=== PATIENT | male | born 1955 | race Caucasian/White ===

== ENCOUNTER → 2020-03-08 | Outpatient (CLI) | payer BC ==
[2020-03-08 06:52] LABS: HEMATOCRIT 38.1 % (42.0-52.0); HEMOGLOBIN 12.6 g/dl (13.5-17.5); MEAN CORPUSCULAR HEMOGLOBIN 30.8 pg (27.0-33.0); MEAN CORPUSCULAR HGB CONC 33.1 g/dl (32.0-36.5); MEAN CORPUSCULAR VOLUME 93.2 fl (80.0-96.0); PLATELET COUNT, AUTOMATED 271 10^3/uL (150-450); RED BLOOD COUNT 4.09 10^6/uL (4.30-6.10); WHITE BLOOD COUNT 4.8 10^3/uL (4.0-10.0)
[2020-03-08 07:03] LABS: INR 2.23; PROTHROMBIN TIME 25.2 SECONDS (12.5-14.3)
[2020-03-08 07:25] LABS: ALT/SGPT 31 U/L (12-78); BILIRUBIN,TOTAL 0.7 MG/DL (0.2-1.0); BLOOD UREA NITROGEN 16 MG/DL (7-18); CARBON DIOXIDE LEVEL 30 MEQ/L (21-32); CHLORIDE LEVEL 108 MEQ/L (98-107); CHOLESTEROL LEVEL 213 MG/DL (<200); CHOLESTEROL RISK RATIO 2.766 (<5); CREATININE FOR GFR 0.89 MG/DL (0.70-1.30); GLOMERULAR FILTRATION RATE > 60.0 (>49); GLUCOSE, FASTING 99 MG/DL (70-100); HDL CHOLESTEROL 77 MG/DL (>40); LDL CHOLESTEROL 118 MG/DL (<100); NON-HDL-C 136 MG/DL; POTASSIUM SERUM 4.4 MEQ/L (3.5-5.1); PROSTATIC SPECIFIC AG MONITOR 0.71 NG/ML (< 4.00); SODIUM LEVEL 142 MEQ/L (136-145); TOTAL PROTEIN 7.2 GM/DL (6.4-8.2); TRIGLYCERIDES LEVEL 89 MG/DL (<150)
[2020-03-08 11:41] LABS: HEMOGLOBIN A1c 5.2 %
--- NOTE | 2020-03-09 19:26 | ECGEPIP ---
[facility] Test Date: 2020-03-08 Pat Name: ANTONETTE HUNT Department: Room: - Gender: Male [employer]: BAL : 1955 Requested By: Whit Carrillo Order Number: [id number] Reading MD: Priyanka Rice Measurements Intervals [place] Rate: 92 P: -75 NV: 177 QRS: 31 QRSD: 98 T: 43 QT: 349 QTc: 432 Interpretive Statements SINUS RHYTHM NO PRIOR Electronically Signed on 03-09-2020 19:26:04 EDT by Priyanka Rice
--- NOTE | 2020-03-13 16:16 | REP ---
CHEST X-RAY: 2-VIEWS HISTORY: Hypertension and fatigue. COMPARISON: No comparison chest. FINDINGS: Median sternotomy wires are seen. The lungs are well-inflated and clear. The pleural angles are sharp. Heart size is normal. Pulmonary vasculature is not increased. No significant bony abnormality. IMPRESSION: No active disease. MTDD
== END ==
LOC: M LAB 06:06
PROVIDERS: ATTEND Family Medicine
DX: E03.9 Hypothyroidism, unspecified (principal); R53.83 Other fatigue; I10 Essential (primary) hypertension

== ENCOUNTER → 2021-04-05 | Outpatient (CLI) | payer BC ==
[2021-04-05 10:46] LABS: INR 2.49; PROTHROMBIN TIME 27.3 SECONDS (12.7-14.5)
[2021-04-05 11:13] LABS: ALBUMIN 4.1 GM/DL (3.2-5.2); ALT/SGPT 36 U/L (12-78); BILIRUBIN,TOTAL 0.5 MG/DL (0.2-1.0); BLOOD UREA NITROGEN 12 MG/DL (7-18); CARBON DIOXIDE LEVEL 30 MEQ/L (21-32); CHLORIDE LEVEL 107 MEQ/L (98-107); CHOLESTEROL LEVEL 226 MG/DL (<200); CHOLESTEROL RISK RATIO 3.704 (<5); CREATININE FOR GFR 0.85 MG/DL (0.70-1.30); GLOMERULAR FILTRATION RATE > 60.0 (>49); GLUCOSE, FASTING 105 MG/DL (70-100); HDL CHOLESTEROL 61 MG/DL (>40); LDL CHOLESTEROL 142 MG/DL (<100); NON-HDL-C 165 MG/DL; POTASSIUM SERUM 4.2 MEQ/L (3.5-5.1); SODIUM LEVEL 141 MEQ/L (136-145); TOTAL PROTEIN 7.1 GM/DL (6.4-8.2); TRIGLYCERIDES LEVEL 114 MG/DL (<150)
== END ==
LOC: M PLALAB 07:46
PROVIDERS: ATTEND Family Medicine
DX: E78.2 Mixed hyperlipidemia (principal); Z79.01 Long term (current) use of anticoagulants

== ENCOUNTER → 2021-04-05 | Outpatient (REF) | payer BC | LOC: M LAB REF 16:06 | PROVIDERS: ATTEND Physician Assistant | DX: C44.529 Squamous cell carcinoma of skin of other part of trunk (principal) ==

== ENCOUNTER → 2021-07-10 | Outpatient (REF) | payer BC | LOC: M LAB REF 17:36 | PROVIDERS: ATTEND Physician Assistant | DX: L90.5 Scar conditions and fibrosis of skin (principal) ==

== ENCOUNTER → 2021-08-08 | Outpatient (CLI) | payer BC ==
[2021-08-08 11:27] LABS: BLOOD UREA NITROGEN 24 MG/DL (7-18); CALCIUM LEVEL 9.3 MG/DL (8.8-10.2); CARBON DIOXIDE LEVEL 30 MEQ/L (21-32); CHLORIDE LEVEL 106 MEQ/L (98-107); CREATININE FOR GFR 0.95 MG/DL (0.70-1.30); GLOMERULAR FILTRATION RATE > 60.0 (>49); GLUCOSE, FASTING 99 MG/DL (70-100); POTASSIUM SERUM 4.4 MEQ/L (3.5-5.1); SODIUM LEVEL 139 MEQ/L (136-145)
== END ==
LOC: M PLALAB 07:13
PROVIDERS: ATTEND Family Medicine
DX: I10 Essential (primary) hypertension (principal)

== ENCOUNTER 2021-12-25 18:48 | Emergency (ER) | payer BC ==
[~2021-12-25] VITALS: Ht 182.9 cm; Wt 81.9 kg
[2021-12-25] MEDS ORDERED: HALO0.052 (19:02)
[2021-12-25] MEDS ORDERED: WARF-60 (19:02)
[2021-12-25] MEDS ORDERED: LISI10TA22 (19:02)
[2021-12-25] MEDS ORDERED: ATOR40TA75 (19:02)
[2021-12-25] MEDS ORDERED: WARF4TAB52 (19:02)
[2021-12-25] MEDS ORDERED: METO1TAB7 (19:02)
[2021-12-25 19:33] LABS: BASO # 0.1 10^3/uL (0.0-0.2); BASO % 0.7 % (0.0-1.0); EOS # 0.4 10^3/uL (0.0-0.5); EOS % 4.7 % (0.0-3.0); HEMATOCRIT 38.1 % (42.0-52.0); HEMOGLOBIN 12.9 g/dl (13.5-17.5); LYMPH # 1.1 10^3/uL (1.5-5.0); LYMPH % 14.1 % (24.0-44.0); MEAN CORPUSCULAR HEMOGLOBIN 30.5 pg (27.0-33.0); MEAN CORPUSCULAR HGB CONC 33.9 g/dl (32.0-36.5); MEAN CORPUSCULAR VOLUME 90.1 fl (80.0-96.0); MONO # 0.6 10^3/uL (0.0-0.8); MONO % 7.6 % (2.0-8.0); NEUTROPHILS # 5.6 10^3/uL (1.5-8.5); NEUTROPHILS % 72.6 % (36.0-66.0); PLATELET COUNT, AUTOMATED 243 10^3/uL (150-450); RED BLOOD COUNT 4.23 10^6/uL (4.30-6.10); WHITE BLOOD COUNT 7.7 10^3/uL (4.0-10.0)
[2021-12-25 19:51] LABS: INR 2.1
[2021-12-25 20:01] LABS: ALBUMIN 4.1 GM/DL (3.2-5.2); BILIRUBIN,DIRECT 0.1 MG/DL (0.0-0.2); BILIRUBIN,TOTAL 0.5 MG/DL (0.2-1.0); CK-MB VALUE MASS 1.6 NG/ML (<3.6); MB/CK RELATIVE INDEX 1.5 (< OR =4)
[2021-12-25 20:18] VITALS: BP 140/68
[2021-12-25] MEDS ORDERED: OMEP40CA4 PO (20:34)
[2021-12-25] MEDS ORDERED: OMEPRAZOLE 20MG CAP PO ONE (20:35)
== END 2021-12-25 20:58 | disposition home or self-care (01) ==
LOC: M ED 18:48
DX: R10.13 Epigastric pain (principal); E78.00 Pure hypercholesterolemia, unspecified; L30.9 Dermatitis, unspecified; Z79.899 Other long term (current) drug therapy; Z79.01 Long term (current) use of anticoagulants

== ENCOUNTER → 2022-02-06 | Outpatient (CLI) | payer BC, SELFPAY ==
[~2022-02-06] MED LIST: ATOR40TA75; HALO0.052; LISI10TA22; METO1TAB7; OMEP40CA4 PO; WARF-60; WARF4TAB52
[2022-02-06 11:33] LABS: INR 3.79; PROTHROMBIN TIME 37.6 SECONDS (12.7-14.5)
== END ==
LOC: M PLALAB 07:44
PROVIDERS: ATTEND Physician Assistant
DX: Z95.2 Presence of prosthetic heart valve (principal)

== ENCOUNTER → 2022-02-27 | Outpatient (CLI) | payer SELFPAY ==
[2022-02-27 10:34] LABS: INR 2.56; PROTHROMBIN TIME 27.9 SECONDS (12.7-14.5)
== END ==
LOC: M PLALAB 07:54
PROVIDERS: ATTEND Physician Assistant
DX: Z79.01 Long term (current) use of anticoagulants (principal); Z95.2 Presence of prosthetic heart valve

== ENCOUNTER → 2022-03-29 | Outpatient (CLI) | payer BC ==
[2022-03-29 16:17] LABS: INR 2.73; PROTHROMBIN TIME 29.4 SECONDS (12.5-14.5)
== END ==
LOC: M PLALAB 14:32
PROVIDERS: ATTEND Physician Assistant
DX: Z95.2 Presence of prosthetic heart valve (principal)

== ENCOUNTER → 2022-05-07 | Outpatient (CLI) | payer BC ==
[2022-05-07 14:05] LABS: INR 2.82; PROTHROMBIN TIME 30.1 SECONDS (12.5-14.5)
== END ==
LOC: M PLALAB 10:08
PROVIDERS: ATTEND Physician Assistant
DX: Z95.2 Presence of prosthetic heart valve (principal)

== ENCOUNTER → 2022-06-11 | Outpatient (CLI) | payer BC ==
[2022-06-11 15:35] LABS: INR 3.32; PROTHROMBIN TIME 34.2 SECONDS (12.5-14.5)
== END ==
LOC: M PLALAB 12:43
PROVIDERS: ATTEND Physician Assistant
DX: Z95.2 Presence of prosthetic heart valve (principal); Z79.01 Long term (current) use of anticoagulants

== ENCOUNTER → 2022-06-18 | Outpatient (REF) | payer BC | LOC: M SFHCPLAZ 08:52 | PROVIDERS: ATTEND Physician Assistant | DX: Z53.9 Procedure and treatment not carried out, unspecified reason (principal) ==

== ENCOUNTER → 2022-06-18 | Outpatient (CLI) | payer BC ==
[2022-06-18 10:59] LABS: INR 1.68; PROTHROMBIN TIME 20.1 SECONDS (12.5-14.5)
[2022-06-18 11:17] LABS: CHOLESTEROL RISK RATIO 2.82 (<5); HDL CHOLESTEROL 59.1 MG/DL (>40); LDL CHOLESTEROL 94.3 MG/DL (<100)
== END ==
LOC: M PLALAB 09:14
PROVIDERS: ATTEND Physician Assistant
DX: E78.2 Mixed hyperlipidemia (principal)

== ENCOUNTER → 2022-07-11 | Outpatient (CLI) | payer BC ==
[2022-07-11 10:53] LABS: INR 1.9; PROTHROMBIN TIME 22.1 SECONDS (12.5-14.5)
== END ==
LOC: M PLALAB 07:25
PROVIDERS: ATTEND Physician Assistant
DX: Z79.01 Long term (current) use of anticoagulants (principal)

== ENCOUNTER → 2022-08-02 | Outpatient (REF) | payer BC ==
[2022-08-02 10:37] LABS: INR 2.6; PROTHROMBIN TIME 28.3 SECONDS (12.5-14.5)
== END ==
LOC: M PLALAB 09:58
PROVIDERS: ATTEND Physician Assistant
DX: Z79.01 Long term (current) use of anticoagulants (principal)

== ENCOUNTER → 2022-08-07 | Outpatient (CLI) | payer MEDICARE ==
[2022-08-07 14:08] LABS: INR 2.66; PROTHROMBIN TIME 28.8 SECONDS (12.5-14.5)
== END ==
LOC: M PLALAB 10:21
PROVIDERS: ATTEND Physician Assistant
DX: Z95.2 Presence of prosthetic heart valve (principal)

== ENCOUNTER → 2022-09-05 | Outpatient (CLI) | payer MEDICARE ==
[2022-09-05 14:05] LABS: INR 3.42
== END ==
LOC: M PLALAB 10:26
PROVIDERS: ATTEND Physician Assistant
DX: Z95.2 Presence of prosthetic heart valve (principal)

== ENCOUNTER → 2022-09-18 | Outpatient (CLI) | payer MEDICARE ==
[2022-09-18 13:44] LABS: INR 2.82; PROTHROMBIN TIME 30.1 SECONDS (12.5-14.5)
== END ==
LOC: M PLALAB 09:13
PROVIDERS: ATTEND Physician Assistant
DX: Z95.2 Presence of prosthetic heart valve (principal); Z79.01 Long term (current) use of anticoagulants

== ENCOUNTER → 2022-10-07 | Outpatient (CLI) | payer MEDICARE ==
[2022-10-07 11:37] LABS: INR 1.95; PROTHROMBIN TIME 22.6 SECONDS (12.5-14.5)
== END ==
LOC: M PLALAB 07:33
PROVIDERS: ATTEND Physician Assistant
DX: Z95.2 Presence of prosthetic heart valve (principal)

== ENCOUNTER → 2022-11-01 | Outpatient (CLI) | payer MEDICARE ==
[2022-11-01 13:55] LABS: INR 1.58; PROTHROMBIN TIME 19.2 SECONDS (12.5-14.5)
== END ==
LOC: M PLALAB 09:50
PROVIDERS: ATTEND Physician Assistant
DX: Z95.2 Presence of prosthetic heart valve (principal)

== ENCOUNTER → 2022-11-15 | Outpatient (CLI) | payer MEDICARE ==
[2022-11-15 10:47] LABS: INR 2.03; PROTHROMBIN TIME 23.3 SECONDS (12.5-14.5)
== END ==
LOC: M PLALAB 07:05
PROVIDERS: ATTEND Physician Assistant
DX: Z95.2 Presence of prosthetic heart valve (principal)

== ENCOUNTER → 2022-12-12 | Outpatient (CLI) | payer MEDICARE ==
[2022-12-12 14:19] LABS: INR 3.16; PROTHROMBIN TIME 32.9 SECONDS (12.5-14.5)
== END ==
LOC: M PLALAB 10:48
PROVIDERS: ATTEND Physician Assistant
DX: Z95.2 Presence of prosthetic heart valve (principal)

== ENCOUNTER → 2023-01-02 | Outpatient (CLI) | payer MEDICARE ==
[2023-01-02 13:35] LABS: INR 2.52; PROTHROMBIN TIME 27.6 SECONDS (12.5-14.5)
== END ==
LOC: M PLALAB 11:46
PROVIDERS: ATTEND Student in an Organized Health Care Education/Training Program
DX: Z79.01 Long term (current) use of anticoagulants (principal)

== ENCOUNTER → 2023-01-31 | Outpatient (CLI) | payer MEDICARE ==
[2023-01-31 15:12] LABS: INR 2.79; PROTHROMBIN TIME 28.8 SECONDS (12.5-14.5)
== END ==
LOC: M PLALAB 08:45
PROVIDERS: ATTEND Physician Assistant
DX: Z95.2 Presence of prosthetic heart valve (principal)

== ENCOUNTER → 2023-03-06 | Outpatient (CLI) | payer MEDICARE ==
[2023-03-06 13:49] LABS: INR 2.16; PROTHROMBIN TIME 23.6 SECONDS (12.5-14.5)
== END ==
LOC: M PLALAB 09:53
PROVIDERS: ATTEND Student in an Organized Health Care Education/Training Program
DX: Z79.01 Long term (current) use of anticoagulants (principal)

== ENCOUNTER → 2023-03-11 | Outpatient (CLI) | payer MEDICARE ==
[2023-03-11 10:49] LABS: BASO # 0.1 10^3/uL (0.0-0.2); BASO % 0.7 % (0.0-1.0); EOS # 0.4 10^3/uL (0.0-0.5); EOS % 6.4 % (0.0-3.0); HEMATOCRIT 43.3 % (42.0-52.0); HEMOGLOBIN 14.4 g/dl (13.5-17.5); LYMPH # 0.7 10^3/uL (1.5-5.0); LYMPH % 10.1 % (24.0-44.0); MEAN CORPUSCULAR HEMOGLOBIN 30.6 pg (27.0-33.0); MEAN CORPUSCULAR HGB CONC 33.3 g/dl (32.0-36.5); MEAN CORPUSCULAR VOLUME 91.9 fl (80.0-96.0); MONO # 0.7 10^3/uL (0.0-0.8); NEUTROPHILS # 4.8 10^3/uL (1.5-8.5); NEUTROPHILS % 71.4 % (36.0-66.0); PLATELET COUNT, AUTOMATED 282 10^3/uL (150-450); RED BLOOD COUNT 4.71 10^6/uL (4.30-6.10); WHITE BLOOD COUNT 6.7 10^3/uL (4.0-10.0)
[2023-03-11 10:59] LABS: INR 2.63; PROTHROMBIN TIME 27.5 SECONDS (12.5-14.5)
[2023-03-11 11:22] LABS: CREATININE, URINE 182.5 MG/DL; MAU/CREAT RATIO 3.2 MCG/MG (0.0-30.0)
[2023-03-11 11:27] LABS: ALKALINE PHOSPHATASE 66 U/L (46-116); ALT/SGPT 45 U/L (7.0-40); AST/SGOT 24 U/L (<34); BILIRUBIN,TOTAL 0.7 MG/DL (0.3-1.2); BLOOD UREA NITROGEN 13 MG/DL (9-23); CALCIUM LEVEL 9.3 MG/DL (8.3-10.6); CARBON DIOXIDE LEVEL 29 MMOL/L (20-31); CHLORIDE LEVEL 105 MMOL/L (98-107); CHOLESTEROL LEVEL 166 MG/DL (<200); CHOLESTEROL RISK RATIO 3.22 (<5); CREATININE FOR GFR 0.81 MG/DL (0.70-1.30); GLOMERULAR FILTRATION RATE > 60.0 (>49); GLUCOSE, FASTING 92 MG/DL (74-106); HDL CHOLESTEROL 51.5 MG/DL (>40); LDL CHOLESTEROL 93.1 MG/DL (<100); NON-HDL-C 114.5 MG/DL; POTASSIUM SERUM 4.7 MMOL/L (3.5-5.1); SODIUM LEVEL 140 MMOL/L (136-145); TOTAL PROTEIN 6.9 G/DL (5.7-8.2); TRIGLYCERIDES LEVEL 107 MG/DL (<150)
[2023-03-11 11:56] LABS: HIV 1&2 SCREEN NEGATIVE (NEGATIVE)
[2023-03-11 12:03] LABS: HEPATITIS C VIRUS ABY INDEX 0.04 INDEX (<0.8)
[2023-03-11 16:12] LABS: ALBUMIN 4.2 G/DL (3.2-5.2)
== END ==
LOC: M PLALAB 08:07
PROVIDERS: ATTEND Student in an Organized Health Care Education/Training Program
DX: Z76.89 Persons encountering health services in other specified circumstances (principal); Z79.01 Long term (current) use of anticoagulants; Z79.899 Other long term (current) drug therapy

== ENCOUNTER → 2023-04-09 | Outpatient (CLI) | payer MEDICARE ==
[2023-04-09 12:34] LABS: INR 3.91; PROTHROMBIN TIME 36.8 SECONDS (12.5-14.5)
== END ==
LOC: M PLALAB 08:32
PROVIDERS: ATTEND Student in an Organized Health Care Education/Training Program
DX: Z79.01 Long term (current) use of anticoagulants (principal)

== ENCOUNTER → 2023-04-16 | Outpatient (CLI) | payer MEDICARE | LOC: M CARPUL 09:50 | PROVIDERS: ATTEND Student in an Organized Health Care Education/Training Program | DX: Z95.2 Presence of prosthetic heart valve (principal) ==

== ENCOUNTER → 2023-04-21 | Outpatient (CLI) | payer MEDICARE ==
[2023-04-21 10:39] LABS: INR 3.47; PROTHROMBIN TIME 33.6 SECONDS (12.5-14.5)
== END ==
LOC: M PLALAB 08:36
PROVIDERS: ATTEND Student in an Organized Health Care Education/Training Program
DX: Z79.01 Long term (current) use of anticoagulants (principal)

== ENCOUNTER → 2023-05-14 | Outpatient (CLI) | payer MEDICARE ==
[2023-05-14 11:09] LABS: INR 3.1; PROTHROMBIN TIME 30.8 SECONDS (12.5-14.5)
== END ==
LOC: M PLALAB 08:42
PROVIDERS: ATTEND Student in an Organized Health Care Education/Training Program
DX: Z79.01 Long term (current) use of anticoagulants (principal)

== ENCOUNTER → 2023-06-20 | Outpatient (CLI) | payer MEDICARE ==
[2023-06-20 13:18] LABS: INR 3.39
== END ==
LOC: M PLALAB 10:44
PROVIDERS: ATTEND Student in an Organized Health Care Education/Training Program
DX: Z79.01 Long term (current) use of anticoagulants (principal)

== ENCOUNTER 2023-07-01 07:07 | Emergency (ER) | payer MEDICARE ==
[~2023-07-01] VITALS: Ht 182.9 cm; Wt 86.2 kg
[2023-07-01 09:59] VITALS: TEMP 98.2
[2023-07-01 12:29] VITALS: BP 137/73; O2SAT 99
== END 2023-07-01 12:31 | disposition home or self-care (01) ==
LOC: M ED 07:07
DX: S40.922A Unspecified superficial injury of left upper arm, initial encounter (principal); W01.0XXA Fall on same level from slipping, tripping and stumbling without subsequent striking against object, initial encounter; I10 Essential (primary) hypertension; Y92.009 Unspecified place in unspecified non-institutional (private) residence as the place of occurrence of the external cause; Y93.89 Activity, other specified; Y99.9 Unspecified external cause status; Z79.01 Long term (current) use of anticoagulants; Z79.811 Long term (current) use of aromatase inhibitors; Z79.02 Long term (current) use of antithrombotics/antiplatelets; Z79.899 Other long term (current) drug therapy

== ENCOUNTER → 2023-07-18 | Outpatient (CLI) | payer MEDICARE ==
[~2023-07-18] MED LIST changes: -ATOR40TA75; +ATOR40TA75 PO; +D 101000 PO; -LISI10TA22; +LISI10TA22 PO; -METO1TAB7; +METO1TAB7 PO; -WARF-60; +WARF-60 PO; -WARF4TAB52; +WARF4TAB52 PO
[2023-07-18 16:11] LABS: INR 3.71; PROTHROMBIN TIME 35.4 SECONDS (12.5-14.5)
== END ==
LOC: M PLALAB 13:49
PROVIDERS: ATTEND Student in an Organized Health Care Education/Training Program
DX: Z79.01 Long term (current) use of anticoagulants (principal)

== ENCOUNTER → 2023-08-21 | Outpatient (CLI) | payer MEDICARE ==
[2023-08-21 10:31] LABS: INR 3.36; PROTHROMBIN TIME 32.8 SECONDS (12.5-14.5)
== END ==
LOC: M PLALAB 08:16
PROVIDERS: ATTEND Family Medicine
DX: Z79.01 Long term (current) use of anticoagulants (principal)

== ENCOUNTER → 2023-10-08 | Outpatient (REF) | payer MEDICARE | LOC: M SFHCPLAZ 10:49 | PROVIDERS: ATTEND Student in an Organized Health Care Education/Training Program | DX: Z95.2 Presence of prosthetic heart valve (principal) ==

== ENCOUNTER → 2023-10-09 | Outpatient (CLI) | payer MEDICARE ==
[2023-10-09 10:32] LABS: INR 2.99
== END ==
LOC: M PLALAB 08:06
PROVIDERS: ATTEND Student in an Organized Health Care Education/Training Program
DX: Z95.2 Presence of prosthetic heart valve (principal); Z79.01 Long term (current) use of anticoagulants

== ENCOUNTER → 2023-12-09 | Outpatient (CLI) | payer MEDICARE ==
[2023-12-09 12:48] LABS: INR 3.61; PROTHROMBIN TIME 34.7 SECONDS (12.5-14.5)
== END ==
LOC: M PLALAB 10:02
PROVIDERS: ATTEND Student in an Organized Health Care Education/Training Program
DX: Z95.2 Presence of prosthetic heart valve (principal)

== ENCOUNTER → 2023-12-17 | Outpatient (REF) | payer MEDICARE | LOC: M SFHCPLAZ 12:52 | PROVIDERS: ATTEND Student in an Organized Health Care Education/Training Program | DX: Z79.01 Long term (current) use of anticoagulants (principal) ==

== ENCOUNTER → 2024-02-10 | Outpatient (CLI) | payer MEDICARE ==
[2024-02-10 13:18] LABS: HEMATOCRIT 41.9 % (42.0-52.0); HEMOGLOBIN 14.1 g/dl (13.5-17.5); RED BLOOD COUNT 4.65 10^6/uL (4.30-6.10); WHITE BLOOD COUNT 5.8 10^3/uL (4.0-10.0)
[2024-02-10 13:19] LABS: BASO % 0.7 % (0.0-1.0); EOS # 0.4 10^3/uL (0.0-0.5); EOS % 7.1 % (0.0-3.0); LYMPH % 17.1 % (24.0-44.0); MEAN CORPUSCULAR HEMOGLOBIN 30.3 pg (27.0-33.0); MEAN CORPUSCULAR HGB CONC 33.7 g/dl (32.0-36.5); MEAN CORPUSCULAR VOLUME 90.1 fl (80.0-96.0); MONO # 0.6 10^3/uL (0.0-0.8); MONO % 10.3 % (2.0-8.0); NEUTROPHILS # 3.7 10^3/uL (1.5-8.5); NEUTROPHILS % 64.5 % (36.0-66.0); PLATELET COUNT, AUTOMATED 247 10^3/uL (150-450)
[2024-02-10 13:29] LABS: INR 2.59; PROTHROMBIN TIME 26.8 SECONDS (12.5-14.5)
[2024-02-10 13:54] LABS: CREATININE, URINE 32.8 MG/DL; MALB URINE SIEMENS < 3.0 MG/L; MAU/CREAT RATIO 9.1 MCG/MG (0.0-30.0)
[2024-02-10 13:59] LABS: ALBUMIN 4.2 G/DL (3.2-5.2); ALKALINE PHOSPHATASE 57 U/L (46-116); ALT/SGPT 38 U/L (7.0-40); AST/SGOT 24 U/L (<34); BILIRUBIN,TOTAL 0.9 MG/DL (0.3-1.2); BLOOD UREA NITROGEN 15 MG/DL (9-23); CALCIUM LEVEL 9.9 MG/DL (8.3-10.6); CARBON DIOXIDE LEVEL 29 MMOL/L (20-31); CHLORIDE LEVEL 107 MMOL/L (98-107); CHOLESTEROL LEVEL 203 MG/DL (<200); CHOLESTEROL RISK RATIO 3.05 (<5); CREATININE FOR GFR 0.83 MG/DL (0.70-1.30); GLOMERULAR FILTRATION RATE > 60.0 (>49); GLUCOSE, FASTING 93 MG/DL (74-106); HDL CHOLESTEROL 66.5 MG/DL (>40); LDL CHOLESTEROL 114.7 MG/DL (<100); NON-HDL-C 136.5 MG/DL; POTASSIUM SERUM 4.9 MMOL/L (3.5-5.1); SODIUM LEVEL 141 MMOL/L (136-145); TRIGLYCERIDES LEVEL 109 MG/DL (<150)
== END ==
LOC: M PLALAB 10:47
PROVIDERS: ATTEND Student in an Organized Health Care Education/Training Program
DX: E78.2 Mixed hyperlipidemia (principal); I10 Essential (primary) hypertension; Z79.01 Long term (current) use of anticoagulants

== ENCOUNTER → 2024-02-11 | Outpatient (REF) | payer MEDICARE | LOC: M SFHCPLAZ 09:28 | PROVIDERS: ATTEND Student in an Organized Health Care Education/Training Program | DX: Z79.01 Long term (current) use of anticoagulants (principal); E78.2 Mixed hyperlipidemia; I10 Essential (primary) hypertension ==

== ENCOUNTER 2024-02-25 10:23 | Day surgery (SDC) | payer MEDICARE ==
[~2024-02-25] VITALS: Ht 180.3 cm; Wt 83.3 kg
[~2024-02-25 10:23] MED LIST changes: +LEVOTAB10 PO; +LOVE1INJ SC; +THERTAB52 PO; +WARF4TAB51 PO
[2024-02-25] MEDS: NS 1,000 ML IV ONE (11:04)
[2024-02-25] MEDS ORDERED: propofoL 200 MG/20 ML VIAL As Ordered ONE (11:40)
[2024-02-25] MEDS ORDERED: LIDOCAINE 2% 100MG/5ML SDV (FOR ANES.) As Ordered ONE (11:40)
[2024-02-25 12:43] VITALS: BP 121/69; O2SAT 99
== END 2024-02-25 12:43 | disposition home or self-care (01) ==
LOC: M OPP 10:23
PROVIDERS: ATTEND Surgery
DX: R19.5 Other fecal abnormalities (principal); D12.5 Benign neoplasm of sigmoid colon; K64.1 Second degree hemorrhoids; I10 Essential (primary) hypertension; E78.00 Pure hypercholesterolemia, unspecified; F17.290 Nicotine dependence, other tobacco product, uncomplicated; Z85.828 Personal history of other malignant neoplasm of skin; Z79.01 Long term (current) use of anticoagulants; Z79.899 Other long term (current) drug therapy; Z95.2 Presence of prosthetic heart valve

== ENCOUNTER → 2024-03-03 | Outpatient (CLI) | payer MEDICARE ==
[2024-03-03 08:28] LABS: INR 1.38; PROTHROMBIN TIME 16.5 SECONDS (12.5-14.5)
== END ==
LOC: M LAB 07:34
PROVIDERS: ATTEND Family Medicine
DX: Z79.01 Long term (current) use of anticoagulants (principal)

== ENCOUNTER → 2024-03-25 | Outpatient (CLI) | payer MEDICARE ==
[2024-03-25 10:09] LABS: INR 2.02; PROTHROMBIN TIME 22.2 SECONDS (12.5-14.5)
== END ==
LOC: M PLALAB 08:50
PROVIDERS: ATTEND Student in an Organized Health Care Education/Training Program
DX: R79.1 Abnormal coagulation profile (principal); Z79.01 Long term (current) use of anticoagulants

== ENCOUNTER 2024-05-20 16:38 | Emergency (ER) | payer MEDICARE ==
[~2024-05-20] VITALS: Ht 182.9 cm; Wt 81.8 kg
[~2024-05-20 16:38] MED LIST changes: -HALO0.052; +HALO0.056
[2024-05-20] MEDS: MORPHINE 2 MG/ML 1ML VIAL IV ONE (17:30)
[2024-05-20] MEDS: LIDOCAINE 5% (LIDODERM) PATCH TD ONE (17:31)
[2024-05-20 17:35] LABS: BASO % 0.6 % (0.0-1.0); EOS # 0.4 10^3/uL (0.0-0.5); EOS % 6.1 % (0.0-3.0); HEMATOCRIT 39.2 % (42.0-52.0); LYMPH # 1.2 10^3/uL (1.5-5.0); LYMPH % 17.3 % (24.0-44.0); MEAN CORPUSCULAR HGB CONC 33.2 g/dl (32.0-36.5); MEAN CORPUSCULAR VOLUME 90.3 fl (80.0-96.0); MONO # 0.7 10^3/uL (0.0-0.8); MONO % 10.4 % (2.0-8.0); NEUTROPHILS # 4.4 10^3/uL (1.5-8.5); NEUTROPHILS % 65.3 % (36.0-66.0); PLATELET COUNT, AUTOMATED 266 10^3/uL (150-450); RED BLOOD COUNT 4.34 10^6/uL (4.30-6.10); WHITE BLOOD COUNT 6.8 10^3/uL (4.0-10.0)
[2024-05-20] MEDS ORDERED: ISOVUE-370 76% 100ML VIAL As Ordered ONE (17:43)
[2024-05-20 17:48] LABS: INR 1.67; PROTHROMBIN TIME 19.9 SECONDS (12.5-14.5)
[2024-05-20] MEDS: PERCOCET 5MG/325MG TAB PO ONE (18:41)
[2024-05-20] MEDS ORDERED: PERC5TAB12 PO (19:03)
[2024-05-20 19:15] VITALS: BP 118/67; O2SAT 95
[2024-05-20 19:25] VITALS: TEMP 97.2
== END 2024-05-20 19:28 | disposition home or self-care (01) ==
LOC: M ED 16:38
DX: S22.42XA Multiple fractures of ribs, left side, initial encounter for closed fracture (principal); M54.50 Low back pain, unspecified; W10.8XXA Fall (on) (from) other stairs and steps, initial encounter; I10 Essential (primary) hypertension; E78.5 Hyperlipidemia, unspecified; Z79.02 Long term (current) use of antithrombotics/antiplatelets; Z79.811 Long term (current) use of aromatase inhibitors; Z79.01 Long term (current) use of anticoagulants; Z79.899 Other long term (current) drug therapy; Y92.009 Unspecified place in unspecified non-institutional (private) residence as the place of occurrence of the external cause; Y93.89 Activity, other specified; Y99.9 Unspecified external cause status
CPT/HCPCS: 70450; 71260; 72125; 80047; 85025; 85610; 94010; 96374; 99284; Q9967

== ENCOUNTER → 2024-06-16 | Outpatient (CLI) | payer MEDICARE ==
[~2024-06-16] MED LIST changes: +PERC5TAB12 PO
[2024-06-16 14:55] LABS: INR 3.51
== END ==
LOC: M LAB 14:08
PROVIDERS: ATTEND Student in an Organized Health Care Education/Training Program
DX: Z79.01 Long term (current) use of anticoagulants (principal)

== ENCOUNTER → 2024-07-06 | Outpatient (CLI) | payer MEDICARE ==
[2024-07-06 12:31] LABS: BASO # 0.1 10^3/uL (0.0-0.2); BASO % 1.1 % (0.0-1.0); EOS # 0.5 10^3/uL (0.0-0.5); EOS % 8.5 % (0.0-3.0); HEMATOCRIT 40.5 % (42.0-52.0); HEMOGLOBIN 13.7 g/dl (13.5-17.5); LYMPH % 18.1 % (24.0-44.0); MEAN CORPUSCULAR HEMOGLOBIN 30.4 pg (27.0-33.0); MEAN CORPUSCULAR HGB CONC 33.8 g/dl (32.0-36.5); MONO # 0.6 10^3/uL (0.0-0.8); MONO % 10.3 % (2.0-8.0); NEUTROPHILS # 3.5 10^3/uL (1.5-8.5); NEUTROPHILS % 61.8 % (36.0-66.0); PLATELET COUNT, AUTOMATED 306 10^3/uL (150-450); WHITE BLOOD COUNT 5.6 10^3/uL (4.0-10.0)
[2024-07-06 12:37] LABS: PROTHROMBIN TIME 22.8 SECONDS (12.5-14.5)
[2024-07-06 12:41] LABS: PSA SCREENING 0.67 NG/ML (< 4.00)
[2024-07-06 12:42] LABS: ALBUMIN 4.3 G/DL (3.2-5.2); ALKALINE PHOSPHATASE 63 U/L (40-129); ALT/SGPT 39 U/L (7.0-40); AST/SGOT 26 U/L (<34); BILIRUBIN,TOTAL 0.8 MG/DL (0.3-1.2); BLOOD UREA NITROGEN 20 MG/DL (9-23); CALCIUM LEVEL 9.7 MG/DL (8.3-10.6); CARBON DIOXIDE LEVEL 30 MMOL/L (20-31); CHLORIDE LEVEL 105 MMOL/L (98-107); CHOLESTEROL LEVEL 199 MG/DL (<200); CHOLESTEROL RISK RATIO 3.36 (<5); CREATININE FOR GFR 0.78 MG/DL (0.70-1.30); GLOMERULAR FILTRATION RATE > 60.0 (>49); GLUCOSE, FASTING 94 MG/DL (74-106); HDL CHOLESTEROL 59.1 MG/DL (>40); LDL CHOLESTEROL 119.5 MG/DL (<100); NON-HDL-C 139.9 MG/DL; POTASSIUM SERUM 4.6 MMOL/L (3.5-5.1); SODIUM LEVEL 142 MMOL/L (136-145); TOTAL PROTEIN 7.3 G/DL (5.7-8.2); TRIGLYCERIDES LEVEL 102 MG/DL (<150)
[2024-07-06 13:02] LABS: CREATININE, URINE 139.6 MG/DL; MAU/CREAT RATIO 4.2 MCG/MG (0.0-30.0)
[2024-07-06 13:06] LABS: HEMOGLOBIN A1c 5.4 % (4.0-6.0)
== END ==
LOC: M PLALAB 09:28
PROVIDERS: ATTEND Student in an Organized Health Care Education/Training Program
DX: Z00.00 Encounter for general adult medical examination without abnormal findings (principal); I10 Essential (primary) hypertension; Z79.01 Long term (current) use of anticoagulants; Z12.5 Encounter for screening for malignant neoplasm of prostate; Z79.899 Other long term (current) drug therapy
CPT/HCPCS: 36415; 80053; 80061; 82043; 83036; 85025; 85610; G0103

== ENCOUNTER → 2024-07-08 | Outpatient (CLI) | payer MEDICARE | LOC: M WHC 07-07 11:04 | PROVIDERS: ATTEND Student in an Organized Health Care Education/Training Program | DX: M79.604 Pain in right leg (principal) ==

== ENCOUNTER → 2024-07-14 | Outpatient (CLI) | payer MEDICARE ==
[2024-07-14 13:00] LABS: INR 3.43; PROTHROMBIN TIME 34.4 SECONDS (12.5-14.5)
== END ==
LOC: M PLALAB 10:38
PROVIDERS: ATTEND Student in an Organized Health Care Education/Training Program
DX: Z79.01 Long term (current) use of anticoagulants (principal)

== ENCOUNTER → 2024-09-25 | Outpatient (CLI) | payer MEDICARE | LOC: M RAD 08:01 | PROVIDERS: ATTEND Student in an Organized Health Care Education/Training Program | DX: S39.92XD Unspecified injury of lower back, subsequent encounter (principal); W18.30XD Fall on same level, unspecified, subsequent encounter ==

== ENCOUNTER → 2025-05-10 | Outpatient (CLI) | payer MEDICARE ==
[2025-05-10 16:34] LABS: ALT/SGPT 30 U/L (7.0-40); AST/SGOT 26 U/L (<34); CALCIUM LEVEL 8.6 MG/DL (8.3-10.6); CARBON DIOXIDE LEVEL 29 MMOL/L (20-31); CHLORIDE LEVEL 107 MMOL/L (98-107); CHOLESTEROL LEVEL 177 MG/DL (<200); CHOLESTEROL RISK RATIO 3.14 (<5); CREATININE FOR GFR 0.78 MG/DL (0.70-1.30); GLOMERULAR FILTRATION RATE > 90.0 (>49); LDL CHOLESTEROL 84.7 MG/DL (<100); NON-HDL-C 120.7 MG/DL; POTASSIUM SERUM 4.1 MMOL/L (3.5-5.1); SODIUM LEVEL 142 MMOL/L (136-145); TRIGLYCERIDES LEVEL 180 MG/DL (<150)
== END ==
LOC: M PLALAB 14:26
PROVIDERS: ATTEND Student in an Organized Health Care Education/Training Program
DX: E78.5 Hyperlipidemia, unspecified (principal)